=== PATIENT | female | born 1990 | race Two or more races ===

== ENCOUNTER → 2020-05-03 | Outpatient (REF) | payer BC ==
[2020-05-03 10:36] LABS: HEMATOCRIT 39.4 % (36.0-47.0); HEMOGLOBIN 12.7 g/dl (12.0-15.5); MEAN CORPUSCULAR HEMOGLOBIN 27.5 pg (27.0-33.0); MEAN CORPUSCULAR HGB CONC 32.2 g/dl (32.0-36.5); MEAN CORPUSCULAR VOLUME 85.3 fl (80.0-96.0); PLATELET COUNT, AUTOMATED 170 10^3/uL (150-450); RED BLOOD COUNT 4.62 10^6/uL (4.00-5.40); WHITE BLOOD COUNT 6.2 10^3/uL (4.0-10.0)
[2020-05-03 11:27] LABS: HEPATITIS C VIRUS ABY INDEX 0.1 INDEX (<0.8); HIV 1&2 SCREEN CENTAUR NEGATIVE (NEGATIVE)
== END ==
LOC: M PLALAB 08:32
PROVIDERS: ATTEND Obstetrics & Gynecology
DX: Z36.89 Encounter for other specified antenatal screening (principal); Z3A.11 11 weeks gestation of pregnancy

== ENCOUNTER → 2020-06-04 | Outpatient (CLI) | payer BC | LOC: M WHC 11:47 | PROVIDERS: ATTEND Obstetrics & Gynecology | DX: Z36.89 Encounter for other specified antenatal screening (principal); Z3A.16 16 weeks gestation of pregnancy; Z53.9 Procedure and treatment not carried out, unspecified reason ==

== ENCOUNTER → 2020-07-05 | Outpatient (CLI) | payer BC, OTHER ==
--- NOTE | 2020-07-05 15:13 | REP ---
INDICATION: ANATOMY. COMPARISON: None TECHNIQUE: Transabdominal scanning FINDINGS: Multiple ultrasonographic images of the gravid uterus shows a single living intrauterine gestation in variable positions. Doppler interrogation of the heart is a heart rate of 149 beats per minute. The placenta is anterior fundal and not low-lying. The cervix measures 4.4 cm in length and is closed. The subjective amniotic fluid volume is within normal limits. anatomical structures seen as unremarkable are as follows: Thalami, cavum septum pellucidum, cerebellum, cisterna magna, cerebral ventricles, spine, urinary bladder, four-chamber heart, ventricular outflow tracts, stomach, and upper and lower extremities The upper lip and kidneys were suboptimally visualized. BPD 4.7 cm 20 weeks 2 days, HC 18.0 cm 20 weeks 3 days, AC 15.2 cm 20 weeks 3 days, FL 3.2 cm 20 weeks 0 days The estimated weight is 342 g which is at the 38th percentile for a 20 week 3 day gestational age. IMPRESSION: Single living intrauterine gestation as described above with an estimated gestational age of 20 weeks 2 days via composite criteria and an estimated date of delivery of 11/20/2020 by today's exam. Follow-up is recommended for better visualization of the upper lip and kidneys. <Electronically signed by Jacques Perez > 07/05/20 [id number]
== END ==
LOC: M WHC 13:22
PROVIDERS: ATTEND Obstetrics & Gynecology
DX: Z34.92 Encounter for supervision of normal pregnancy, unspecified, second trimester (principal); Z3A.20 20 weeks gestation of pregnancy

== ENCOUNTER → 2020-08-19 | Outpatient (REF) | payer BC ==
[2020-08-19 12:56] LABS: HEMATOCRIT 37.4 % (36.0-47.0); HEMOGLOBIN 11.8 g/dl (12.0-15.5); MEAN CORPUSCULAR HEMOGLOBIN 28.1 pg (27.0-33.0); MEAN CORPUSCULAR HGB CONC 31.6 g/dl (32.0-36.5); PLATELET COUNT, AUTOMATED 151 10^3/uL (150-450); WHITE BLOOD COUNT 7.6 10^3/uL (4.0-10.0)
== END ==
LOC: M PLALAB 08:32
PROVIDERS: ATTEND Obstetrics & Gynecology
DX: O13.2 Gestational [pregnancy-induced] hypertension without significant proteinuria, second trimester (principal)

== ENCOUNTER → 2020-08-27 | Outpatient (CLI) | payer OTHER ==
--- NOTE | 2020-08-27 10:47 | REP ---
INDICATION: F/U ANATOMY COMPARISON: 07/05/2020 TECHNIQUE: Transabdominal obstetrical ultrasound with color Doppler evaluation. FINDINGS: Examination demonstrates a single live intrauterine in transverse (head to maternal right) presentation. motion is identified by technologist. Placenta is noted anterior and grade 1 without evidence for placenta previa or abruption. Amniotic fluid volume is normal. Cervix measures 3.9 cm in length and appears closed.. Gestational age by LMP 28 weeks 0 days with LIVE 11/19/2020. Gestational age by current measurements 28 weeks 0 days with LIVE 11/19/2020. FHR equals 147 beats per minute. MARTÍNEZ: 16.3 cm Estimated weight 1160 grams (37thpercentile). Anatomical assessment demonstrates normal structures including cranium, facial features, lungs, four-chamber heart/ventricular outflow tracts, stomach, cord insertion/three-vessel cord, kidneys/bladder, and spine. IMPRESSION: Single live intrauterine in transverse lie demonstrating appropriate interval growth. In conjunction with prior examination anatomical assessment is complete and normal. <Electronically signed by Yony Moreau > 08/27/20 [id number]
== END ==
LOC: M WHC 08:56
PROVIDERS: ATTEND Obstetrics & Gynecology
DX: O34.211 Maternal care for low transverse scar from previous cesarean delivery (principal); Z3A.28 28 weeks gestation of pregnancy

== ENCOUNTER → 2020-10-28 | Outpatient (REF) | payer OTHER ==
[~2020-10-28] MED LIST: ECOT81TA5 PO; PRENTAB9 PO
== END ==
LOC: M SFHCWAGY 17:18
PROVIDERS: ATTEND Obstetrics & Gynecology
DX: O34.211 Maternal care for low transverse scar from previous cesarean delivery (principal)

== ENCOUNTER → 2020-11-07 | Outpatient (CLI) | payer BC | LOC: M LABSMTC 09:31 | PROVIDERS: ATTEND Anesthesiology | DX: Z01.812 Encounter for preprocedural laboratory examination (principal) ==

== ENCOUNTER 2020-11-12 05:09 | Inpatient (IN) | payer OTHER ==
[~2020-11-12] VITALS: Ht 160 cm; Wt 92.7 kg
[2020-11-12] MEDS ORDERED: LR 1,000 ML IV ONE (06:00)
[2020-11-12] MEDS ORDERED: ceFAZolin SOD 2 GM in IV 1 EA IV ONE (06:00)
[2020-11-12] MEDS ORDERED: BICITRA 30ML SOLN UDC PO ONE (06:00)
[2020-11-12 06:20] LABS: HEMATOCRIT 37.4 % (36.0-47.0); HEMOGLOBIN 12.2 g/dl (12.0-15.5); MEAN CORPUSCULAR HEMOGLOBIN 28.2 pg (27.0-33.0); MEAN CORPUSCULAR HGB CONC 32.6 g/dl (32.0-36.5); MEAN CORPUSCULAR VOLUME 86.4 fl (80.0-96.0); PLATELET COUNT, AUTOMATED 142 10^3/uL (150-450); RED BLOOD COUNT 4.33 10^6/uL (4.00-5.40)
[2020-11-12] MEDS ORDERED: OXYTOCIN INJ 10 UNITS/ML VIAL (J2590) As Ordered ONE (06:43)
[2020-11-12] MEDS ORDERED: KETOROLAC 60MG 2ML VIAL As Ordered ONE (06:43)
[2020-11-12] MEDS ORDERED: ONDANSETRON 4MG/2ML VIAL As Ordered ONE (06:43)
[2020-11-12] MEDS ORDERED: dexameTHASONE 4 MG/ML 1ML VIAL (J1100 PER 1MG) As Ordered ONE (06:43)
[2020-11-12 06:46] VITALS: BP 105/68
[2020-11-12] MEDS ORDERED: OXYTOCIN 30 UNITS IN 0.9% NaCl 500ML IV BAG (J2590) As Ordered ONE ×2 (06:49→09:29)
[2020-11-12] MEDS ORDERED: ePHEDrine SULFATE 25 MG/5 ML(5MG/ML) SYRINGE As Ordered ONE (06:50)
[2020-11-12] MEDS ORDERED: PHENYLephrine 500MCG 5ML (100MCG/ML) SYRINGE As Ordered ONE (06:50)
[2020-11-12] MEDS ORDERED: LR 1,000 ML IV SCH ×2 (07:00→09:25)
[2020-11-12] MEDS ORDERED: MORPHINE PRES-FREE INJ 10 MG/10 ML VIAL (J2274) As Ordered ONE (07:04)
[2020-11-12] MEDS ORDERED: ACETAMINOPHEN 500 MG TAB PO PRN (08:55)
[2020-11-12] MEDS ORDERED: SIMETHICONE 80MG CHEW TAB PO PRN (08:55)
[2020-11-12] MEDS ORDERED: ONDANSETRON 4MG/2ML VIAL IV PRN ×2 (08:55→09:25)
[2020-11-12] MEDS ORDERED: MEASLES,MUMPS,RUBELLA VACCINE INJ (MMR-II) (90707) SC SCH (08:55)
[2020-11-12] MEDS ORDERED: RHOGAM 300 MCG (1500 IU) INJ (J2790) IM SCH (08:55)
[2020-11-12] MEDS ORDERED: OXYTOCIN DRIP 30 UNITS in IV 1 EA IV SCH (08:55)
[2020-11-12] MEDS: DOCUSATE SODIUM 100MG CAPSULE PO SCH ×2 (09:00→20:39)
[2020-11-12] MEDS: PRENATAL VITAMINS CHEWABLE TABLET PO SCH (09:00)
--- NOTE | 2020-11-12 09:02 | ROOPDOC ---
[facility] Report Of Operation Report of Operation DATE OF PROCEDURE: 11/12/2020 PREPROCEDURE DIAGNOSES:. 39+ weeks gestation, history of low transverse section 1 and declining trial of labor after , satisfied parity POSTPROCEDURE DIAGNOSES: Same PROCEDURE: Elective repeat low transverse section with [place] bilateral tubal ligation. SURGEON: Charles Phillips DO FACOG LOAN REPRESENTATIVE: Violet Francois MD FACOG (Essential role in retraction, extraction, and closure of all tissue layers) ANESTHESIA: Spinal ESTIMATED BLOOD LOSS: 500 mL. IV FLUIDS: 1000 mL LR URINE OUTPUT: 500 mL COMPLICATIONS: None. FINDINGS: Normal uterus and bilateral fallopian tubes/ovaries. PREOPERATIVE ANTIBIOTICS: Ancef 2g IV x 1 DATA: Apgars 8 and 9. Birthweight 3420g, 7lbs 9oz . SPECIMENS: right and left fallopian tubal segments. PRIMARY INDICATION FOR : History of prior LTCS, declining TOLAC. DESCRIPTION OF PROCEDURE: The patient was counseled on the risks, benefits, indications and alternatives of the procedure. Informed consent was obtained. She was taken to the operating room with IV running and placed on the operating table in the dorsal supine position with a leftward tilt. Regional anesthesia was found to be adequate. Sequential compression devices were placed on the lower extremities. A Burton catheter was placed under sterile conditions. She was prepared and draped in normal sterile fashion. A time out was performed per protocol. Regional anesthe harish was again found to be adequate. A Pfannenstiel skin incision was made with the 10 blade. The 10 blade was used to dissect down to the level of the rectus sheath fascia. The rectus sheath pressure was incised midline and this was extended bilaterally with Roblero scissors , and manual stretch. The rectus muscle bellies were dissected off the rectus sheath fascia superiorly and inferiorly using both sharp and blunt dissection. The midline was identified. The peritoneum was identified and the cavity entered. The peritoneal opening was extended with manual stretch. The Mobius retractor was placed. The vesicouterine peritoneum was dissected with Metzenbaum scissors to create the bladder flap. A low transverse uterine incision was made with the 10 blade. This was extended with manual stretch. The amniotic sac was punctured, and clear fluid was noted. The baby delivered through the hysterotomy without difficulty. The cord was doubly clamped and cut, and the baby was handed off to awaiting care. data shown above. The placenta was removed manually. The intrauterine cavity was cleared of all clot and debris. The hysterotomy was closed with 0 Vicryl in running locked fashion. This was reinforced with a second imbricating layer using 0 Monocryl in running fashion. Excellent hemostasis of the hysterotomy was noted. The right and left fallopian tubes were followed out to the fimbriated end. A ligation was performed on each fallopian tube using the following technique (Kirill): The ampullary portion of each was grasped with a [place] and elevated. A peritoneal window was created with Bovie along the mesosalpinx. Plain gut suture was used to tie two locations of the fallopian tube at the ends of the created window. The approximate 2-3cm intervening segment of fallopian tube was excised with Metzenbaum scissors. Bovie cautery was used to obliterate the lumen of the fallopian tube on each cut end, and to ensure hemostasis. Excellent hemostasis was noted. The pelvis was irrigated and the fluid suctioned. The Mobius retractor was removed. The peritoneum was closed with 3-0 Vicryl running fashion. The rectus muscle bellies were reapproximated with interrupted stitches using 3-0 Vicryl. The rectus muscles bellies were hemostatic. The rectus sheath fascia was closed with 0 Vicryl running fashion. The subcutaneous layer was irrigated and the fluid suctioned. Small bleeding vessels were cauterized with Bovie. Excellent hemostasis was noted. The subcutaneous layer was reapproximated with 3-0 Vicryl running fashion. Skin was closed with 3-0 Monocryl in subcuticular fashion. An Optifoam bandage was placed over the closed incision. Sponge, needle and instrument counts were correct per protocol throughout the procedure. The patient tolerated the entire procedure very well. She was transferred to the PACU in stable condition. DO ESTEFANY Julian JONATHAN R. DO Nov 12, 2020 09:02
[2020-11-12] MEDS ORDERED: IBUP80TA PO (09:03)
[2020-11-12] MEDS ORDERED: DOK1CAP7 PO (09:03)
[2020-11-12] MEDS ORDERED: PERCOCET PO (09:03)
[2020-11-12] MEDS ORDERED: PERCOCET 5MG/325MG TAB PO PRN (09:25)
[2020-11-12] MEDS ORDERED: fentaNYL 100 MCG/2 ML INJECTION (J3010) IV PRN (09:25)
[2020-11-12] MEDS ORDERED: METOCLOPRAMIDE INJ 10MG/2ML VIAL (J2765 PER 1) IV PRN (09:25)
[2020-11-12] MEDS: LR 1,000 ML IV SCH ×2 (09:45→16:55)
[2020-11-12] MEDS ORDERED: PERCOCET 5MG/325MG TAB As Ordered ONE (10:19)
[2020-11-12] MEDS: PERCOCET 5MG/325MG TAB PO PRN (10:22)
[2020-11-12 10:45] VITALS: BP 127/67
[2020-11-12 11:15] VITALS: BP 121/83
[2020-11-12 12:18] VITALS: BP 136/82
[2020-11-12] MEDS: KETOROLAC 30 MG/ML 1ML VIAL IV SCH ×2 (15:49→20:40)
[2020-11-12 18:05] VITALS: BP 119/67
[2020-11-12 22:00] VITALS: BP 104/55
[2020-11-13] MEDS: LR 1,000 ML IV SCH (00:55)
[2020-11-13 02:00] VITALS: BP 110/62
[2020-11-13] MEDS: PERCOCET 5MG/325MG TAB PO PRN ×2 (02:01→19:52)
[2020-11-13] MEDS: KETOROLAC 30 MG/ML 1ML VIAL IV SCH (02:52)
[2020-11-13 06:00] VITALS: BP 111/57
[2020-11-13 07:07] LABS: HEMATOCRIT 34.1 % (36.0-47.0); MEAN CORPUSCULAR HEMOGLOBIN 28.3 pg (27.0-33.0); MEAN CORPUSCULAR HGB CONC 32.3 g/dl (32.0-36.5); MEAN CORPUSCULAR VOLUME 87.7 fl (80.0-96.0); PLATELET COUNT, AUTOMATED 116 10^3/uL (150-450); RED BLOOD COUNT 3.89 10^6/uL (4.00-5.40); WHITE BLOOD COUNT 8.6 10^3/uL (4.0-10.0)
[2020-11-13] MEDS: PRENATAL VITAMINS CHEWABLE TABLET PO SCH (09:22)
[2020-11-13] MEDS: DOCUSATE SODIUM 100MG CAPSULE PO SCH ×2 (09:22→19:52)
[2020-11-13 10:00] VITALS: BP 107/61
[2020-11-13] MEDS: IBUPROFEN 800 MG TAB PO SCH ×2 (10:45→18:00)
[2020-11-13 18:00] VITALS: BP 136/70
[2020-11-13 21:15] VITALS: BP 127/64
[2020-11-13 22:00] VITALS: BP 134/86
[2020-11-14 02:00] VITALS: BP 128/77
[2020-11-14] MEDS: IBUPROFEN 800 MG TAB PO SCH ×2 (02:16→10:41)
[2020-11-14] MEDS: PERCOCET 5MG/325MG TAB PO PRN (05:59)
[2020-11-14 06:00] VITALS: BP 131/73
[2020-11-14] MEDS: DOCUSATE SODIUM 100MG CAPSULE PO SCH (09:16)
[2020-11-14] MEDS: PRENATAL VITAMINS CHEWABLE TABLET PO SCH (09:16)
--- NOTE | 2020-11-14 09:42 | DSES ---
DISCHARGE SUMMARY DATE OF ADMISSION: 11/12/2020 DATE OF DISCHARGE: 11/14/2020 DISCHARGE DIAGNOSIS: Repeat section at term with bilateral tubal ligation post-op day 2 stable for discharge. SURGEON: Charles Phillips DO. GLOVE CUTTER: Boo Francois MD. HISTORY AND HOSPITAL COURSE: Emma is a 30-year-old 2, para 2, 0, 0, 2 now who was admitted to labor and delivery for planned repeat section with bilateral tubal ligation. Her surgery was uncomplicated. She had an estimated blood loss of 500 mL. Delivered a live male weighing 3420 grams (7 pounds 9 ounces), Apgars 8 and 9. She has been out of bed for self care, cayetano care and infant care. She is voiding without difficulty, passing flatus. She is both breast and formula feeding. Her pain has been well managed with oral pain medications. She is ambulating without difficulty and requests discharge home. Plan is to discharge the patient home. She is to follow up at [facility] for a 2 week incision check and an 8 week visit. Pain medications have been prescribed by Dr. Charles Phillips to her pharmacy for Percocet and ibuprofen. I did review discharge instructions that include breast care, incision care, cayetano care, pelvic rest, activity and lifting restrictions, other dangerous signs to report and access to her care provider. The patient and her have had all of their questions answered and do request discharge home. SUBJECTIVE: Temp 98.7, pulse 98, respirations 18, BP 128/77. Breasts: Soft, nontender, nipples are intact. Abdomen: Fundus firm at umbilicus incision. The Optifoam dressing is in place. There is no drainage noted. Perineum is intact. Lochia rubra was scant. Extremities: Bilateral lower extremities with 1+ pitting edema. LABORATORY DATA: 11/12/2020 CBC: Hemoglobin 12.2, hematocrit 37.4, platelets. Post-operative CBC 11/13/2020: Hemoglobin 11, hematocrit 34.1, platelets 116.
[2020-11-14] MEDS ORDERED: PERC5TAB12 PO (14:23)
== END 2020-11-14 12:00 | disposition home or self-care (01) | DRG 540 ==
LOC: M LDI 05:09 → M OBS 10:35
PROVIDERS: ADMIT Obstetrics & Gynecology; ATTEND Obstetrics & Gynecology
PROC: 0UB70ZZ Excision of Bilateral Fallopian Tubes, Open Approach (ICD-10-PCS; 2020-11-12)
PROC: 10D00Z1 Extraction of Products of Conception, Low, Open Approach (ICD-10-PCS; principal; 2020-11-12 07:30)
DX: O34.211 Maternal care for low transverse scar from previous cesarean delivery (principal); Z3A.39 39 weeks gestation of pregnancy; Z37.0 Single live birth; Z30.2 Encounter for sterilization

== ENCOUNTER → 2024-11-29 | Outpatient (CLI) | payer OTHER ==
[~2024-11-29] MED LIST changes: +DOK1CAP4 PO; +IBUP80TA PO; +PERC5TAB12 PO; +PERCOCET PO
[2024-11-29 14:22] LABS: HEMATOCRIT 36.3 % (36.0-47.0); HEMOGLOBIN 11.6 g/dl (12.0-15.5); MEAN CORPUSCULAR HEMOGLOBIN 28.3 pg (27.0-33.0); MEAN CORPUSCULAR VOLUME 88.5 fl (80.0-96.0); PLATELET COUNT, AUTOMATED 229 10^3/uL (150-450); WHITE BLOOD COUNT 4.3 10^3/uL (4.0-10.0)
[2024-11-29 14:46] LABS: HEMOGLOBIN A1c 5.2 % (4.0-6.0)
[2024-11-29 14:49] LABS: ALBUMIN 3.5 G/DL (3.2-5.2); ALKALINE PHOSPHATASE 47 U/L (35-104); ALT/SGPT 28 U/L (7.0-40); AST/SGOT 15 U/L (<34); BILIRUBIN,TOTAL 0.3 MG/DL (0.3-1.2); BLOOD UREA NITROGEN 10 MG/DL (9-23); CALCIUM LEVEL 8.8 MG/DL (8.5-10.1); CARBON DIOXIDE LEVEL 28 MMOL/L (20-31); CHLORIDE LEVEL 104 MMOL/L (98-107); CHOLESTEROL LEVEL 205 MG/DL (<200); CREATININE FOR GFR 0.77 MG/DL (0.55-1.30); GLOMERULAR FILTRATION RATE > 90.0 (>60); GLUCOSE, FASTING 94 MG/DL (60-100); HDL CHOLESTEROL 56.9 MG/DL (>40); LDL CHOLESTEROL 126.7 MG/DL (<100); NON-HDL-C 148.1 MG/DL; SODIUM LEVEL 141 MMOL/L (136-145); THYROID STIMULATING HORMONE 0.518 uIU/ML (0.55-4.78); TOTAL PROTEIN 6.5 G/DL (5.7-8.2); TRIGLYCERIDES LEVEL 107 MG/DL (<150)
== END ==
LOC: M WUC 09:15
PROVIDERS: ATTEND Physician Assistant
DX: R21 Rash and other nonspecific skin eruption (principal)

== ENCOUNTER → 2024-12-20 | Outpatient (CLI) | payer OTHER ==
[2024-12-20 13:23] LABS: THYROID STIMULATING HORMONE 0.518 uIU/ML (0.55-4.78)
[2024-12-20 13:27] LABS: FERRITIN 18.2 NG/ML (7.3-270.7); FREE T4 1.34 NG/DL (0.89-1.76)
[2024-12-20 13:31] LABS: FOLATE 21.88 NG/ML (>5.4)
[2024-12-20 13:32] LABS: URIC ACID 5.2 MG/DL (3.1-7.8); VITAMIN B12 LEVEL 867 PG/ML (211-911)
[2024-12-20 13:35] LABS: C REACTIVE PROTEIN QUANTITATIV < 0.50 MG/DL (<1.0); IRON (FE) 33 UG/DL (50-170); PERCENT SATURATION 11.1 % (13.2-45.0); TOTAL IRON BINDING CAPACITY 298 UG/DL (250-425)
[2024-12-20 14:45] LABS: RHEUMATOID FACTOR QUANT 3.5 IU/ML (<14)
[2024-12-22 15:17] LABS: ANA PATTERN Nuclear, Homogeneous (NEGATIVE); ANA SCREEN, IFA POSITIVE (NEGATIVE)
== END ==
LOC: M WUC 10:50
PROVIDERS: ATTEND Physician Assistant
DX: R21 Rash and other nonspecific skin eruption (principal)

== ENCOUNTER → 2025-07-23 | Outpatient (REF) | payer OTHER ==
[2025-07-23 17:49] LABS: BASO # 0.0 10^3/uL (0.0-0.2); BASO % 0.3 % (0.0-1.0); EOS # 0.3 10^3/uL (0.0-0.5); EOS % 4.5 % (0.0-3.0); LYMPH # 2.8 10^3/uL (1.5-5.0); LYMPH % 46.7 % (24.0-44.0); MONO # 0.2 10^3/uL (0.0-0.8); MONO % 4.0 % (2.0-8.0); NEUTROPHILS # 2.7 10^3/uL (1.5-8.5); NEUTROPHILS % 44.3 % (36.0-66.0); PLATELET COUNT, AUTOMATED 324 10^3/uL (150-450)
[2025-07-23 17:58] LABS: APPEARANCE, URINE CLEAR (CLEAR); BACTERIA, URINE AUTO NEGATIVE (NEGATIVE); BILIRUBIN, URINE AUTO NEGATIVE (NEGATIVE); BLOOD, URINE BLOOD NEGATIVE (NEGATIVE); GLUCOSE, URINE (UA) AUTO NEGATIVE (NEGATIVE); KETONE, URINE AUTO NEGATIVE (NEGATIVE); LEUKOCYTE ESTERASE, URINE AUTO NEGATIVE (NEGATIVE); NITRITE, URINE AUTO NEGATIVE (NEGATIVE); PROTEIN, URINE AUTO NEGATIVE (NEGATIVE); RBC, URINE AUTO 0 /HPF (0-3); SPECIFIC GRAVITY URINE AUTO 1.005 (1.002-1.035); SQUAMOUS EPITHELIAL CELL UR AU 0 /HPF (0-6); UROBILINOGEN, URINE AUTO 0.2 mg/dL (0.0-2.0); WBC, URINE AUTO 0 /HPF (0-3)
[2025-07-23 18:12] LABS: C REACTIVE PROTEIN QUANTITATIV < 0.50 MG/DL (<1.0)
[2025-07-23 18:13] LABS: COMPLEMENT C4 46.5 MG/DL (12-36)
[2025-07-23 18:16] LABS: TOTAL 25(OH) VITAMIN D 30.7 NG/ML (20.0-100.0)
[2025-07-23 18:50] LABS: TOTAL PROTEIN,RANDOM URINE < 6.0 MG/DL (0.0-14.0)
[2025-07-27 11:28] LABS: COMPLEMENT TOTAL (CH50) 59 U/mL (31-60)
[2025-07-30 08:53] LABS: PTT-LA 39 sec (<=40)
== END ==
LOC: M SFHCRHEU 14:35
PROVIDERS: ATTEND Internal Medicine
DX: R76.89 Other specified abnormal immunological findings in serum (principal); R53.83 Other fatigue; R21 Rash and other nonspecific skin eruption